=== PATIENT | male | born 1970 | race Hispanic/Latino ===

== ENCOUNTER → 2016-12-07 | Outpatient (CLI) | payer SELFPAY ==
--- NOTE | 2016-12-07 11:42 | RAD ---
EXAM DESCRIPTION: Foot,Left 3 Views CLINICAL HISTORY: 46 years Male, LEFT GREAT TOE JOINT PAIN IMPRESSION: 3 views of left foot reveal no evidence of a fracture. There is mild joint space loss of the great toe which can be seen in the setting of early degenerative change. No additional degenerative changes noted. Electronically signed by: Johnie Manrique MD 12/07/2016 11:41 AM CDT
== END | disposition home or self-care (01) ==
LOC: YCFC.O 09:38
PROVIDERS: ATTEND Nurse Practitioner Family
DX: M25.579 Pain in unspecified ankle and joints of unspecified foot (principal)